=== PATIENT | female | born 1965 | race African-American/Black ===

== ENCOUNTER 2017-04-11 15:41 | Emergency (ER) | payer MEDICAID | END 2017-04-11 18:33 | disposition home or self-care (01) | LOC: D.ER 15:41 | DX: J09.X2 Influenza due to identified novel influenza A virus with other respiratory manifestations (principal); I10 Essential (primary) hypertension ==

== ENCOUNTER 2020-09-03 18:00 | Outpatient (CLI) | payer OTHER | END 2020-09-03 23:59 | disposition home or self-care (01) | LOC: D.MAMMO 18:00 | PROVIDERS: ATTEND Family Medicine | DX: Z12.31 Encounter for screening mammogram for malignant neoplasm of breast (principal) ==